=== PATIENT | female | born 1970 | race Caucasian/White ===

== ENCOUNTER 2020-04-03 01:18 | Emergency (ER) | payer SELFPAY ==
[2020-04-03] VITALS (8 sets, daily range): BP systolic 124–134; BP diastolic 72–89; PULSE 81–88; RESP 14–18; TEMP 36.2; O2SAT 96–100; BMI 33.8
[2020-04-03 02:00] LABS: Bacteria 0 SEEN /hpf (None Seen); Mucous, Urine 0 SEEN /hpf (<or=2+); Red Blood Cells-Urine 0 SEEN /hpf (0-5); Squamous Epithelial Cells - UA 0 SEEN /hpf (5-10); White Blood Cells 0 SEEN /hpf (0-5)
[2020-04-03 02:13] LABS: Amphetamine Urine VISTA NEGATIVE (<1000 ng/mL); Barbiturate Urine VISTA NEGATIVE (< 200 ng/mL); Benzodiazepine Urine VISTA NEGATIVE (< 200 ng/mL); Cocaine Urine VISTA NEGATIVE (< 300 ng/mL); Color, Urine Yellow (Yellow); Ecstacy Urine VISTA NEGATIVE (< 500 ng/mL); Glucose, Dipstick Normal (Normal); Ketone-Dipstick Negative (Negative); Leukocyte Esterase-Dipstick Negative /ul (Negative); Methadone Urine VISTA NEGATIVE (< 300 ng/mL); Nitrite-Dipstick Negative (Negative); Occult Blood-Urine Negative /ul (Negative); PCP Urine VISTA NEGATIVE (< 25 ng/mL); Protein-Dipstick Negative (Negative); Specific Gravity, Urine 1.005 (1.002-1.030); THC Urine VISTA POSITIVE (< 50 ng/mL); Urine Bilirubin Dipstick Negative (Negative); Urine Clarity Clear (Clear); Urine Urobilinogen Normal (Normal); Urine pH 6.5 (5.0 - 8.0); Vista UDS pH Range 6
--- NOTE | 2020-04-03 02:33 | ED.VISSUMM ---
- ER Visit Summary Date of Service: 04/03/20 Chief Complaint: Alcohol intoxication History of Present Illness: The patient is a 49 F who presents with alcohol intoxication that occurred tonight. Patient mentions drinking alcohol and smoking marijuana. EMS reports that the patient was making suicidal threats to them. Patient denies any suicidal ideations at the present time. Patient is a poor historian. Physical Examination: Vital signs are stable. Patient is afebrile. Patient is in no acute distress. Oral mucosa is pink and moist. Neck is supple. Trachea is midline. There is no JVD noted. Heart was regular rate and rhythm. Lungs are clear and equal bilaterally. Abdomen is soft. Bowel sounds are normal. There is no tenderness. There is no rebound or guarding noted. Skin is warm dry. Cranial nerves II through XII are intact. There are no focal motor or sensory deficits noted. Extremities are intact. There is no calf tenderness or edema. Test Results: Urinalysis and urine tox urine were obtained. There is no evidence of urinary tract infection. Urine tox screen was positive for cannabinoids but was otherwise negative serum alcohol level was ordered. Emergency Department Course and Treatment: Patient is sleeping in the emergency department. Patient will be reevaluated when she is clinically sober. Disposition: Care of the patient was turned over to the oncoming physician. He will reevaluate her when she is clinically sober. Impression: 1. Alcohol intoxication This note was generated with [employer] dictation software. It may contain incorrect words, spelling, and punctuation that were not noted in review of the chart prior to signing ED Disposition - Plan for ED Patient: Referrals: Care Physician,No Primary [Primary Care Provider] -
--- NOTE | 2020-04-03 07:36 | ED.DEP ---
ED Disposition - Plan for ED Patient: Disposition: Home or Assisted Living Diagnosis: Alcohol intoxication Instructions: ED INTOXICATION Alcohol Referrals: Care Physician,No Primary [Primary Care Provider] -
--- NOTE | 2020-04-03 07:40 | ED.RN ---
PT AWAKE ANSWERING QUESTIONS. PT REQUESTING TO GO HOME. DOES NOT RECALL THE EVENTS OF LAST NIGHT. DR BOX INTO SEE PT. PER DR BOX, PT SAFE TO BE DISCHARGED IF SHE CAN FIND SOMEONE TO PICK HER UP
--- NOTE | 2020-04-03 07:50 | ED.RN ---
THIS NURSE REVIEWED D/C INSTRUCTIONS WITH PT. ASSISTED PT TO CALL FAMILY FOR A RIDE. PAPER SCRUB PANTS GIVEN TO PT. PT INFORMED TO WAIT IN THE ROOM UNTIL HER RIDE ARRIVES. PT DENIES FURTHER NEEDS OR QUESTIONS AT THIS TIME.
== END 2020-04-03 08:22 | disposition home or self-care (01) ==
PROVIDERS: Emergency Provider Emergency Medicine
DX: F10.129 Alcohol abuse with intoxication, unspecified (principal); Y90.9 Presence of alcohol in blood, level not specified; E66.9 Obesity, unspecified; Z68.33 Body mass index [BMI] 33.0-33.9, adult
CPT/HCPCS: 80307; 80320; 81001; 99285; G0480

== ENCOUNTER 2021-04-20 08:01 | Emergency (ER) | payer SELFPAY ==
[2021-04-20 08:02] VITALS: BP 161/99; PULSE 77; RESP 18; TEMP 36.5; O2SAT 97; BMI 32.1
[2021-04-20 08:15] VITALS: BP 161/99; PULSE 73; RESP 18; TEMP 36.5; O2SAT 97
--- NOTE | 2021-04-20 08:51 | EX.ED.DYSGE1 ---
HPI History of Present Illness Chief Complaint: Cellulitis Narrative Narrative: Patient presents with redness over the anterior part of her left henry that started yesterday and it spreading. She has a history of cellulitis in the past and this is similar. She is denying any fevers or chills. No cough or congestion. No chest pain. No other systemic signs. No history of abrasions or trauma to the region of the leg. PFSH PFS Medical History Anxiety Sepsis Home Medications cephalexin 500 mg PO Q6 #40 cap 04/20/21 [Rx Last Taken Unknown] sulfamethoxazole-trimethoprim [Bactrim DS] 1 tab PO Q12H #20 tab 04/20/21 [Rx Last Taken Unknown] Allergy/AdvReac Type Severity Reaction Status Date / Time acetaminophen [From Percocet] AdvReac Vomiting Verified 04/20/21 08:15 codeine AdvReac Nausea Verified 04/20/21 08:15 oxycodone [From Percocet] AdvReac Vomiting Verified 04/20/21 08:15 Surgical History Hx of appendectomy Hx of section Hx of tonsillectomy Social History Smoking Status: Current every day smoker tobacco type: cigarettes ROS ROS ED ROS Narrative Past medical history: Reviewed, noncontributory other than prior history of cellulitis Medications: Reviewed Social history: Noncontributory Review of systems: All systems negative except as indicated General: No fever Cardiovascular: No chest pain Respiratory: No shortness of breath or cough Gastrointestinal: No abdominal pain, nausea vomiting or diarrhea Genitourinary: No dysuria Musculoskeletal: Leg redness as in HPI Skin: As above Neurological: No memory loss, confusion or any focal weakness Psych: No recent behavioral changes Hematologic: No easy bleeding or easy bruising EXAM Physical Exam Narrative Exam Narrative: Physical exam General: Well nourished, Well developed, No Acute Distress Head: Normocephalic, Atraumatic ENT: Moist mucous membranes Neck: Supple, Nontender, No lymphadenopathy Cardiovascular: Regular rate, Regular rhythm Respiratory: No distress, CTA bilaterally Abdomen: Soft, Nontender, Nondistended Back: Nontender, Normal Inspection. Negative for: CVA tenderness Extremities: There is about a 15 cm region by 5 cm on the anterior henry that is erythematous with increased caliber consistent with cellulitis. It is not circumferential, there is no lymphangitic streak, it is below the knee and above the ankle and it does not involve any joints. Skin: As above Neurological: Alert, Normal Strength, Normal Sensation Psychological: Normal affect Const Vital Signs: 04/20/21 08:02 04/20/21 08:15 Temperature 97.7 F L 97.7 F L Temperature Source Temporal Temporal Pulse Rate 77 73 Respiratory Rate 18 18 Blood Pressure 161/99 H 161/99 H Blood Pressure Mean 119 119 Pulse Ox 97 97 Oxygen Delivery Method Room Air Room Air MDM MDM MDM Narrative Medical decision making narrative: Patient is given IV antibiotics in the ED and will be discharged with oral antibiotics for home. At this time she has no systemic symptoms and appears well. I believe she has a very good chance that she will not need to return. Discharge Plan Triage Chief Complaint: Cellulitis ED Provider: Jonathan Mast Dx/Rx/DC Orders Clinical Impression: Cellulitis Instructions: ED Cellulitis Prescriptions: New sulfamethoxazole-trimethoprim [Bactrim DS] 800-160 mg tablet 1 tab PO Q12H Qty: 20 RF: 0 cephalexin 500 mg capsule 500 mg PO Q6 Qty: 40 RF: 0 Primary Care Provider: Care Physician,No Primary Referrals: Care Physician,No Primary [Primary Care Provider] - Disposition Disposition: Home, Self Care
[2021-04-20 09:00] LABS: Absolute Lymphocyte Count 1.18 X10^3/uL (0.83-4.51); Absolute Neutrophil Count 18.4 X10^3/uL (2.0-7.7); Basophil# 0.09 X10^3/uL; Basophil% 0.4 % (0-1); Hematocrit 44.8 % (37-47); Hemoglobin 15.5 g/dL (12.0-15.0); Lymphocyte # 1.18 X10^3/ul (0.83-4.51); Lymphocyte % 5.6 % (19-41); Mean Corp Hgb Conc 34.6 g/dL (32-36); Mean Corpuscular Hgb 32.2 pg (27.0-32.0); Mean Corpuscular Volume 92.9 fL (81-99); Mean Platelet Vol. 11.5 fl (6.2-12.0); Monocyte# 1.26 X10^3/uL; NRBC Flagged by Analyzer 0 % (0-5); Neutrophil # 18.39 X10^3/uL (2.7-7.7); Neutrophil % 87.3 % (47-70); Platelet Count 312 K/mm3 (150-450); RBC Distribution Width CV 12.9 % (11.6-14.6); RBC Distribution Width SD 43.8 fl (35.1-43.9); Red Blood Count 4.82 M/mm3 (4.2-5.4); White Blood Count 21.1 K/mm3 (4.4-11.0)
[2021-04-20 09:18] VITALS: BP 127/79; PULSE 65; PULSE 72; RESP 16; RESP 18; TEMP 36.7; O2SAT 97; O2SAT 98
[2021-04-20 10:07] VITALS: PULSE 75; RESP 16; O2SAT 98
== END 2021-04-20 10:09 | disposition home or self-care (01) ==
PROVIDERS: Emergency Provider Emergency Medicine
DX: L03.116 Cellulitis of left lower limb (principal); F17.210 Nicotine dependence, cigarettes, uncomplicated
CPT/HCPCS: 85025; 96365; 99283; J7050

== ENCOUNTER 2021-11-06 08:05 | Emergency (ER) | payer SELFPAY ==
[2021-11-06 08:07] VITALS: BP 162/88; PULSE 72; RESP 17; TEMP 37; O2SAT 97; BMI 33.0
--- NOTE | 2021-11-06 08:18 | RAD_ITS ---
STUDY: X-RAY - LEFT FOOT CLINICAL: Female, 51 years old. Injury. Pain. TECHNIQUE: 3 view(s) of the foot. COMPARISON: None. FINDINGS: Inferior calcaneal spur. Normal visualized subtalar, talonavicular, calcaneocuboid, tarsal and tarsometatarsal articulations. Normal metatarsi. Mild arthrosis of the MTP and IP joints. The soft tissue structures are unremarkable. 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 No acute abnormality. Electronically Signed: Domo Potter MD at 9:26 EDT ,
--- NOTE | 2021-11-06 08:19 | EDS_ITS ---
HPI History of Present Illness Chief Complaint: Lower Extremity Injury Informant: patient Occured/Mechanism Mechanism/Context: Yes fall Onset/Context/Timing Onset: Today (JPTA) Context: Sudden Onset Timing: Continuous Quality of Pain: Aching Current Severity: Severe Maximum Severity: Severe Worsened by: moving Relieved by: remaining still Associated Symptoms Associated Symptoms: Positive for Loss of Funtion; Negative for Parasthesia and Weakness Narrative Narrative: Patient states she was on her way to work this morning, down the steps from her home, she missed the last 1 and accidentally fell, twisting her left ankle and injuring it in her left foot. She denies any other injuries. She cannot move it because it hurts so bad and she cannot bear weight on it. PFSH [facility] Medical History Anxiety Sepsis Home Medications NK 11/06/21 [History Last Taken Unknown] Allergy/AdvReac Type Severity Reaction Status Date / Time acetaminophen [From Percocet] AdvReac Vomiting Verified 11/06/21 08:05 codeine AdvReac Nausea Verified 11/06/21 08:05 oxycodone [From Percocet] AdvReac Vomiting Verified 11/06/21 08:05 Surgical History Hx of appendectomy Hx of section Hx of tonsillectomy Social History Smoking Status: Current every day smoker tobacco type: cigarettes ROS ROS ED Constitutional Constitutional ED: Denies chills or fever(s) Musculoskeletal Musculoskeletal: Reports extremity pain; Denies neck pain Integumentary Denies Abrasions, rash or wounds Neurologic Neurologic: Denies paresthesias or weakness EXAM Physical Exam Const Vital Signs: 11/06/21 08:07 Temperature 98.6 F Temperature Source Temporal Pulse Rate 72 Respiratory Rate 17 Blood Pressure 162/88 H Blood Pressure Mean 112 Pulse Ox 97 Oxygen Delivery Method Room Air Positive well nourished and well developed General Appearance ED: well developed and NAD HEENT Reports normocephalic and head/scalp atraumatic Neck full ROM and supple Back/Spine normal ROM and normal to inspection Extremity Extremity Narrative: Very limited range of motion left ankle due to pain. Tender at the left lateral malleolus, the base of the fifth metatarsal, and the entire area in between this which is mildly swollen. No deformities. Nontender to medial malleolus, calcaneus, rest of the foot, and the proximal fibula. Neuro oriented x3, no focal motor deficits and no sensory deficits noted Sensorium / Orientation: alert Psych mental status grossly normal and thought process normal Mood & Affect: anxious Skin no wounds Rashes: no rashes MDM MDM MDM Narrative Medical decision making narrative: Three-view x-ray series each of the left foot and the left ankle both are negative on my interpretation. Radiology in agreement. We will treat her as a sprain, Aircast, Naprosyn was given here along with an ice pack, she will be offered crutches since she was having such a hard time walking and outpatient follow-up advised. She does not have a PCP so she was referred to the next doctor on the unassigned list Dr. Sheridan. 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 No acute abnormality. Electronically Signed: Domo Potter MD at 9:26 EDT , Ankle X-Ray 11/06/21 08:32 IMPRESSION: Calcaneal spur. No acute abnormality or erosive changes. Electronically Signed: Domo Potter MD at 9:28 EDT , Discharge Plan Triage Chief Complaint: Lower Extremity Injury ED Provider: Jenaro Lakhani Dx/Rx/DC Orders Clinical Impression: Left ankle sprain, Fall (on) (from) other stairs and steps, initial encounter Instructions: ED Ankle Sprain (Adult) Prescriptions: No Action NK RF: 0 Primary Care Provider: Care Physician,No Primary Referrals: Anai Sheridan DO [STAFF PHYSICIAN] - 10-14 Days if not better Care Physician,No Primary [Primary Care Provider] - Activity Restrictions/Additional Instructions: Ice when resting, ibuprofen or Aleve as needed Disposition Disposition: Home, Self Care
--- NOTE | 2021-11-06 08:32 | RAD_ITS ---
STUDY: X-RAY - LEFT ANKLE REASON FOR EXAM: Female, 51 years old. Injury. Pain. TECHNIQUE: 3 view(s) of the ankle. COMPARISON: None. FINDINGS: Normal visualized distal tibia and fibula. Normal medial and lateral malleoli. Normal tibiotalar articulation and ankle mortise. Inferior calcaneal spur. The visualized subtalar, talonavicular, calcaneocuboid and tarsal articulations are normal. The soft tissue structures are unremarkable. RAD/Ankle min 3 Views IMPRESSION: Calcaneal spur. No acute abnormality or erosive changes. Electronically Signed: Domo Potter MD at 9:28 EDT ,
[2021-11-06] MEDS: Naproxen 250 MG Tablet 500 MG PO (09:02)
== END 2021-11-06 09:59 | disposition home or self-care (01) ==
PROVIDERS: Emergency Provider Emergency Medicine; Visit Provider Emergency Medicine
DX: S93.402A Sprain of unspecified ligament of left ankle, initial encounter (principal); W10.9XXA Fall (on) (from) unspecified stairs and steps, initial encounter; Y93.01 Activity, walking, marching and hiking; Y99.8 Other external cause status; Y92.009 Unspecified place in unspecified non-institutional (private) residence as the place of occurrence of the external cause; F17.210 Nicotine dependence, cigarettes, uncomplicated
CPT/HCPCS: 73610; 73630; 99284